=== PATIENT | female | born 1965 | race Caucasian/White ===

== ENCOUNTER 2017-12-25 12:44 | Emergency (ER) | payer SELFPAY ==
[~2017-12-25] VITALS: Ht 160 cm; Wt 62.0 kg
[~2017-12-25 12:44] MED LIST: LISI10TA PO; TRAM50 PO
[2017-12-25 12:50] VITALS: BP 157/98; PULSE 104; RESP 16; TEMP 98.4; O2SAT 98
[2017-12-25] MEDS ORDERED: IBUP1TAB7 PO (14:30)
[2017-12-25] MEDS ORDERED: ROBA750T PO (14:30)
[2017-12-25] MEDS ORDERED: KETOROLAC TROMETHAMINE 60 MG/2 ML (IM) VIAL IM ONE (14:30)
--- NOTE | 2017-12-25 14:31 | PD ---
HPI Chief Complaint: Musculoskeletal Complaint Time Seen by Provider: 14:04 Travel History International Travel<30 days: No Contact w/Intl Traveler<30days: No Traveled to known affect area: No History of Present Illness HPI 52-year-old female here with upper back and neck pain and stiffness 4 days. She reports waking up with mild right-sided neck pain which has become increasingly more stiff and painful over the last several days. She denies fever or chills. No headache. She has had a similar episode in the past with a muscle spasm. Denies injury or trauma. Symptom severity is moderate. Aggravated by movement of the neck related rest. PFSH Past Medical History Asthma: Yes Diminished Hearing: No Hypertension: Yes (takes no meds) Influenza Vaccination: No ?: Not Past Surgical History Section: Yes Oral Surgery: Yes (nasal surgery) Other Surgery: Yes (BREAST AUGMENTATION, hemorrhoids removed) Social History Alcohol Use: Yes (COUPLE TIMES PER MONTH) Tobacco Use: No Substance Use: No Allergies-Medications (Allergen,Severity, Reaction): Coded Allergies: acetaminophen (Unverified Allergy, Severe, dizziness, 12/25/17) codeine (Unverified Allergy, Severe, tinitis,,vomiting,syncope, 12/25/17) prednisone (Unverified Allergy, Severe, Irritability/Anxiety, 12/25/17) propoxyphene (Unverified Allergy, Severe, dizziness, 12/25/17) Reported Meds & Prescriptions Reported Meds & Active Scripts Active Review of Systems Except as stated in HPI: all other systems reviewed are Neg General / Constitutional: No: Fever Eyes: No: Visual changes HENT: No: Headaches Cardiovascular: No: Chest Pain or Discomfort Respiratory: No: Shortness of Breath Gastrointestinal: No: Abdominal Pain Genitourinary: No: Dysuria Physical Exam Narrative GENERAL: Alert and well-appearing 52-year-old female SKIN: Warm and dry. HEAD: Normocephalic. EYES: No injection or drainage. NECK: Supple, trachea midline. No lymphadenopathy. No cervical midline tenderness.+ TTP right trapezius muscle with muscle spasm. Patient can freely move the neck although it causes discomfort in the right side of the neck over the trapezius muscle. CARDIOVASCULAR: Regular rate and rhythm RESPIRATORY: Breath sounds equal bilaterally. No accessory muscle use. MUSCULOSKELETAL: No cyanosis, or edema. Normal strength and sensation of upper extremities. Equal hand grasp. Data Data Last Documented VS Vital Signs Date Time Temp Pulse Resp B/P (MAP) Pulse Ox O2 Delivery O2 Flow Rate FiO2 12/25/17 12:50 98.4 104 16 157/98 (117) 98 Orders Orders Ketorolac Inj (Toradol Inj) (12/25/17 14:30) MDM Medical Decision Making Medical Screen Exam Complete: Yes Emergency Medical Condition: Yes Differential Diagnosis Torticollis, trapezius muscle spasm, cervical strain Narrative Course This is a 52-year-old female here with right sided neck discomfort and muscle spasm. No injury trauma. She has a normal neurologic exam. She has right trapezius muscle spasm. This is consistent with a her back/neck strain. She' ll be treated with NSAIDs and muscle relaxers. Diagnosis Primary Impression: Acute strain of neck muscle Qualified Codes: S16.1XXA - Strain of muscle, fascia and tendon at neck level , initial encounter Referrals: Primary Care Physician Additional Instructions: Medication as directed. Ice or heat for comfort. Follow-up with her primary doctor Scripts Methocarbamol (Robaxin) 750 Mg Tab 750 MG PO QID for Muscle Spasm, #12 TAB 0 Refills Prov: Anabella Carrington 12/25/17 Ibuprofen (Ibuprofen) 800 Mg Tab 800 MG PO Q6HR Y for PAIN, #40 TAB 0 Refills Prov: Anabella Carringtno 12/25/17 Disposition: 01 DISCHARGE HOME Condition: Stable Anabella Carrington Dec 25, 2017 14:31
== END 2017-12-25 15:12 | disposition home or self-care (01) ==
LOC: PHEFT 12:44
DX: S16.1XXA Strain of muscle, fascia and tendon at neck level, initial encounter (principal); J45.909 Unspecified asthma, uncomplicated; I10 Essential (primary) hypertension
CPT/HCPCS: 96372; 99283; J1885